=== PATIENT | male | born 1980 | race Hispanic/Latino ===

== ENCOUNTER 2016-09-03 14:23 | Emergency (ER) | payer MEDICAID ==
[2016-09-03 14:23] VITALS: BMI 34.7
[2016-09-03 14:38] VITALS: BP 112/62; PULSE 85; RESP 18; TEMP 97.4; O2SAT 97
--- NOTE | 2016-09-03 14:41 | ED PDOC ---
Arrival/HPI - General Chief Complaint: Abnormal Skin Integrity Time Seen by Provider: 09/03/16 14:41 Historian: Patient - History of Present Illness Narrative History of Present Illness (Text): 09/03/16 14:41 This 36 yo male presents to this ED c/o left inner thigh boil x 2 weeks. Patient stated he has been applied warmth compress. Boil is painful. Patient denies groin pain, streaking erythema, drainage, or fever. Time/Duration: Other (2 weeks) Context: Home Past Medical History - Provider Review Nursing Documentation Reviewed: Yes - Past History Past History: No Previous - Infectious Disease Hx of Infectious Diseases: None - Tetanus Immunization Tetanus Immunization: Unknown - Cardiac Hx Cardiac Disorders: Yes Hx PR: Yes (2011) - Pulmonary Hx Respiratory Disorders: Yes Hx Asthma: Yes Hx Sleep Apnea: Yes - Neurological Hx Neurological Disorder: No - HEENT Hx HEENT Disorder: No - Renal Hx Renal Disorder: No - Endocrine/Metabolic Hx Endocrine Disorders: No - Hematological/Oncological Hx Blood Disorders: No - Integumentary Hx Dermatological Disorder: No - Musculoskeletal/Rheumatological Hx Musculoskeletal Disorders: No - Gastrointestinal Hx Gastrointestinal Disorders: Yes Hx Gall Bladder Disease: Yes Hx Gastroesophageal Reflux: Yes - Genitourinary/Gynecological Hx Genitourinary Disorders: No - Psychiatric Hx Psychophysiologic Disorder: No Hx Substance Use: No - Past Surgical History Past Surgical History: No Previous - Surgical History Hx Cholecystectomy: Yes Other/Comment: cleft palate and lip, bone graft - Anesthesia Hx Anesthesia: No Hx Anesthesia Reactions: No (difficulty arousing pt) Hx Malignant Hyperthermia: No - Suicidal Assessment Feels Threatened In Home Enviroment: No Family/Social History - Physician Review Nursing Documentation Reviewed: Yes Family/Social History: No Known Family HX Smoking Status: Light Smoker < 10 Cigarettes Daily Hx Alcohol Use: No (FORMER) Hx Substance Use: No Hx Substance Use Treatment: No Allergies/Home Meds Allergies/Adverse Reactions: Allergies No Known Allergies Allergy (Verified 09/03/16 14:38) Home Medications: Home Meds Medication Instructions Recorded Confirmed Dsipn-4-Igns Ethyl Esters [OMEGA 3] 1 cap PO BID 04/25/14 03/31/16 Cholecalciferol (Vitamin D3) 1,000 iu PO DAILY 10/25/14 08/02/16 [Vitamin D] Ibuprofen [Advil] 0 mg PO 03/31/16 Review of Systems - Review of Systems Constitutional: Normal. absent: Fatigue, Weight Change, Fevers Eyes: Normal ENT: Normal Respiratory: Normal. absent: SOB, Cough Cardiovascular: Normal. absent: Chest Pain Gastrointestinal: Normal. absent: Abdominal Pain, Vomiting, Appetite Changes Genitourinary Male: Normal. absent: Dysuria Musculoskeletal: Normal Skin: Abscess (left thigh abscess) Neurological: Normal Endocrine: Normal Hemo/Lymphatic: Normal Psychiatric: Normal Physical Exam Vital Signs Temp Pulse Resp BP Pulse Ox 09/03/16 14:34 97.4 F L 85 18 112/62 97 Temperature: Afebrile Blood Pressure: Normal Pulse: Regular Respiratory Rate: Normal Appearance: Positive for: Well-Appearing, Non-Toxic, Comfortable Pain Distress: None Mental Status: Positive for: Alert and Oriented X 3 - Systems Exam Head: Present: Atraumatic, Normocephalic Pupils: Present: PERRL Extroacular Muscles: Present: EOMI Conjunctiva: Present: Normal Mouth: Present: Moist Mucous Membranes Neck: Present: Normal Range of Motion Neurological: Present: GCS=15, CN II-XII Intact, Speech Normal, Motor Func Grossly Intact, Normal Sensory Function, Normal Cerebellar Funct Skin: Present: Warm, Dry, Normal Color, Abscess ((+) left inner tight abscess, approx. 1 cm No erythema). No: Rashes Psychiatric: Present: Alert, Oriented x 3, Normal Insight, Normal Concentration Medical Decision Making ED Course and Treatment: 09/03/16 15:29 Re-evaluation. Patient feels better. Discussed results and plan with patient who expresses understanding. All questions answered and there is agreement with the plan to discharge home with instructions. Patient stable for discharge. Return if symptoms persist or worsen I&D was performed. Very small abscess. No packing was inserted. Re-evaluation Time: 15:29 Reassessment Condition: Re-examined, Improved - Medication Orders Current Medication Orders: Discontinued Medications Trimethoprim/Sulfamethoxazole (Bactrim Ds Tab) 1 tab PO STAT STA PRN Reason: Protocol Stop: 09/03/16 15:18 Last Admin: 09/03/16 15:26 Dose: 1 TAB - Procedure PROCEDURE NOTE (Text): 09/03/16 15:29 PROCEDURE: INCISION & DRAINAGE Performed by the emergency provider Indication: Abscess Location: left inner thigh Preparation: The area was prepped and draped in the usual sterile fashion and was cleansed with Betadine. Local infiltration of Lidocaine 1% with Epi was used for anesthesia. Procedure: The most fluctuant portion of the abscess was incised with a #11 scalpel. Approximately 0.5 mL of was obtained. A dressing was applied by the RN. ~ Post-Procedure: ~On exam the abscess is notably less fluctuant.~ The patient tolerated the procedure well, and there were no complications Disposition/Present on Arrival - Present on Arrival Any Indicators Present on Arrival: No History of DVT/PE: No History of Uncontrolled Diabetes: No Urinary Catheter: No History of Decub. Ulcer: No History Surgical Site Infection Following: None - Disposition Have Diagnosis and Disposition been Completed?: Yes Diagnosis: Abscess Disposition: HOME/ ROUTINE Disposition Time: 15:30 Patient Plan: Discharge Patient Problems: Current Active Problems Problem Status Diagnosed Abscess Acute Elevated liver function tests Acute Intractable abdominal pain Acute Condition: GOOD Discharge Instructions (ExitCare): Abscess Incision and Drainage (ED) Additional Instructions: Call private doctor for follow up visit in 1-2 days. clean wound with soap and water daily. take medication as instructed. Return to emergency if symptoms worsen. Prescriptions: Sulfamethoxazole/Trimethoprim [Bactrim DS 800 mg-160 mg] 1 tab PO BID #20 tab Naproxen 500 mg PO BID #14 tab Referrals: PCP,NO [Primary Care Provider] - Follow up with primary [facility] [Outside] - Follow up with primary Forms: WORK NOTE
[2016-09-03] MEDS ORDERED: Tmp-Smz 800 mg-160 mg DS Tab PO STA (15:17)
== END 2016-09-03 15:42 | disposition home or self-care (01) ==
LOC: ED 14:23
DX: L02.416 Cutaneous abscess of left lower limb (principal); F17.210 Nicotine dependence, cigarettes, uncomplicated

== ENCOUNTER 2016-09-23 23:30 | Emergency (ER) | payer MEDICAID ==
[2016-09-23 23:54] VITALS: BMI 36.0
[2016-09-23 23:55] VITALS: BP 119/75; PULSE 87; RESP 16; TEMP 98; O2SAT 95
--- NOTE | 2016-09-24 00:08 | ED PDOC ---
Arrival/HPI - General Historian: Patient <Martha Contreras A - Last Filed: 09/24/16 00:05> <Abraham Strong - Last Filed: 09/24/16 01:18> - General Chief Complaint: Dental Pain Time Seen by Provider: 09/23/16 23:58 - History of Present Illness Narrative History of Present Illness (Text): 09/24/16 00:05 36yo male in ED with complaint of right sided lower premolar toothache x 2days. States pain became worse today. he plans to make an appointment with a Dentist. Denies fever, chills, any other complaint. (Martha Contreras A) Past Medical History - Provider Review Nursing Documentation Reviewed: Yes - Past History Past History: No Previous - Infectious Disease Hx of Infectious Diseases: None - Tetanus Immunization Tetanus Immunization: Unknown - Cardiac Hx Cardiac Disorders: Yes Hx MS: Yes (2011) - Pulmonary Hx Respiratory Disorders: Yes Hx Asthma: Yes Hx Sleep Apnea: Yes - Neurological Hx Neurological Disorder: No - HEENT Hx HEENT Disorder: No - Renal Hx Renal Disorder: No - Endocrine/Metabolic Hx Endocrine Disorders: No - Hematological/Oncological Hx Blood Disorders: No - Integumentary Hx Dermatological Disorder: No - Musculoskeletal/Rheumatological Hx Musculoskeletal Disorders: No - Gastrointestinal Hx Gastrointestinal Disorders: Yes Hx Gall Bladder Disease: Yes Hx Gastroesophageal Reflux: Yes - Genitourinary/Gynecological Hx Genitourinary Disorders: No - Psychiatric Hx Psychophysiologic Disorder: No Hx Substance Use: No - Past Surgical History Past Surgical History: No Previous - Surgical History Hx Cholecystectomy: Yes Other/Comment: cleft palate and lip, bone graft - Anesthesia Hx Anesthesia: No Hx Anesthesia Reactions: No (difficulty arousing pt) Hx Malignant Hyperthermia: No - Suicidal Assessment Feels Threatened In Home Enviroment: No <Martha Contreras A - Last Filed: 09/24/16 00:05> Family/Social History - Physician Review Nursing Documentation Reviewed: Yes Family/Social History: Unknown Family HX Smoking Status: Light Smoker < 10 Cigarettes Daily Hx Alcohol Use: No (FORMER) Hx Substance Use: No Hx Substance Use Treatment: No <Martha Contreras A - Last Filed: 09/24/16 00:05> Allergies/Home Meds <Martha Contreras A - Last Filed: 09/24/16 00:05> <Abraham Strong - Last Filed: 09/24/16 01:18> Allergies/Adverse Reactions: Allergies No Known Allergies Allergy (Verified 09/03/16 14:38) Home Medications: Home Meds Medication Instructions Recorded Confirmed Thimd-5-Jltm Ethyl Esters [OMEGA 3] 1 cap PO BID 04/25/14 03/31/16 Cholecalciferol (Vitamin D3) 1,000 iu PO DAILY 10/25/14 08/02/16 [Vitamin D] Ibuprofen [Advil] 0 mg PO 03/31/16 Review of Systems - Physician Review All systems were reviewed & negative as marked: Yes - Review of Systems Constitutional: Normal Eyes: Normal ENT: Other (Toothache) Respiratory: Normal Cardiovascular: Normal Gastrointestinal: Normal Genitourinary Male: Normal Musculoskeletal: Normal Skin: Normal Neurological: Normal Endocrine: Normal Hemo/Lymphatic: Normal Psychiatric: Normal <Martha Contreras A - Last Filed: 09/24/16 00:05> Physical Exam Vital Signs Reviewed: Yes Temperature: Afebrile Blood Pressure: Normal Pulse: Regular Respiratory Rate: Normal Appearance: Positive for: Well-Appearing, Non-Toxic, Comfortable Pain Distress: None Mental Status: Positive for: Alert and Oriented X 3 - Systems Exam Head: Present: Atraumatic, Normocephalic Pupils: Present: PERRL Extroacular Muscles: Present: EOMI Conjunctiva: Present: Normal Mouth: Present: Moist Mucous Membranes. No: Normal Teeth (Poor dentition in general. several missing tooth. Right sided lower premolar noted with mild surrounding gingiva.) Neck: Present: Normal Range of Motion Respiratory/Chest: Present: Clear to Auscultation, Good Air Exchange. No: Respiratory Distress, Accessory Muscle Use Cardiovascular: Present: Regular Rate and Rhythm, Normal S1, S2. No: Murmurs Abdomen: Present: Normal Bowel Sounds. No: Tenderness, Distention, Peritoneal Signs Back: Present: Normal Inspection Upper Extremity: Present: Normal Inspection. No: Cyanosis, Edema Lower Extremity: Present: Normal Inspection. No: Edema Neurological: Present: GCS=15, CN II-XII Intact, Speech Normal Skin: Present: Warm, Dry, Normal Color. No: Rashes Psychiatric: Present: Alert, Oriented x 3, Normal Insight, Normal Concentration <DiruHappiness A - Last Filed: 09/24/16 00:05> Vital Signs Temp Pulse Resp BP Pulse Ox 09/23/16 23:55 98 F 87 16 119/75 95 - Medication Orders Current Medication Orders: Discontinued Medications Amoxicillin (Amoxil 500 Mg Cap) 500 mg PO STAT STA PRN Reason: Protocol Stop: 09/24/16 00:05 Last Admin: 09/24/16 00:15 Dose: 500 MG Tramadol HCl (Ultram) 50 mg PO STAT STA Stop: 09/24/16 00:05 Last Admin: 09/24/16 00:15 Dose: 50 MG - PA / [employer] / Resident Statement / has reviewed & agrees with the documentation as recorded. <Abraham Strong - Last Filed: 09/24/16 01:18> Disposition/Present on Arrival - Present on Arrival Any Indicators Present on Arrival: No History of DVT/PE: No History of Uncontrolled Diabetes: No Urinary Catheter: No History of Decub. Ulcer: No History Surgical Site Infection Following: None - Disposition Have Diagnosis and Disposition been Completed?: Yes Disposition Time: 00:15 Patient Plan: Discharge <Martha Contreras - Last Filed: 09/24/16 00:05> <Abraham Strong - Last Filed: 09/24/16 01:18> - Disposition Diagnosis: Toothache Patient Problems: Current Active Problems Problem Status Diagnosed Elevated liver function tests Acute Intractable abdominal pain Acute Discharge Instructions (ExitCare): Dental Caries (ED) Additional Instructions: Follow up with a dentist Return to ED for any new or worsening symptoms Prescriptions: Amoxicillin 500 mg PO BID #21 tablet traMADol [Ultram] 50 mg PO TID #9 tab Referrals: Memo Villela DMD [Staff Provider] - Follow up with primary
== END 2016-09-24 01:00 | disposition home or self-care (01) ==
LOC: ED 23:30
DX: K08.89 Other specified disorders of teeth and supporting structures (principal)

== ENCOUNTER 2018-10-17 14:26 | Emergency (ER) | payer MEDICAID, MEDICARE, OTHER ==
[2018-10-17 14:38] VITALS: BP 116/76; PULSE 83; RESP 18; TEMP 98; O2SAT 96; BMI 35.4
--- NOTE | 2018-10-17 15:00 | ED PDOC ---
Arrival/HPI - General Chief Complaint: Dental Pain Time Seen by Provider: 10/17/18 14:32 Historian: Patient - History of Present Illness Narrative History of Present Illness (Text): 10/17/18 14:55 38 year old M with pmh of cleft palate, hyperlipidemia, DM presents complaining of right sided facial swelling and pain x 2 days. He took Advil with provided little relief. Denies any tooth pain, swallowing complications, throat pain, fevers, chills, headache or dizziness. Patient mentioned he is non complaint with lexapro and metformin. He states he stopped taking his metformin because his glucose levels were normal. Denies excess thirst or urination. He reports he does not have a PMD because he recently moved back from [place]. He denies any further complaints. Time/Duration: < week Symptom Onset: Sudden Symptom Course: Unchanged Activities at Onset: Light Context: Home Past Medical History - Provider Review Nursing Documentation Reviewed: Yes - Past History Past History: No Previous - Infectious Disease Hx of Infectious Diseases: None - Tetanus Immunization Tetanus Immunization: Unknown - Cardiac Hx Cardiac Disorders: Yes Hx DC: Yes (2011) - Pulmonary Hx Respiratory Disorders: Yes Hx Asthma: Yes Hx Sleep Apnea: Yes - Neurological Hx Neurological Disorder: No - HEENT Hx HEENT Disorder: No - Renal Hx Renal Disorder: No - Endocrine/Metabolic Hx Diabetes Mellitus Type 2: Yes (not taking meds) - Hematological/Oncological Hx Blood Disorders: No - Integumentary Hx Dermatological Disorder: No - Musculoskeletal/Rheumatological Hx Musculoskeletal Disorders: No - Gastrointestinal Hx Gastrointestinal Disorders: Yes Hx Gall Bladder Disease: Yes Hx Gastroesophageal Reflux: Yes - Genitourinary/Gynecological Hx Genitourinary Disorders: No - Psychiatric Hx Psychophysiologic Disorder: No Hx Substance Use: No - Past Surgical History Past Surgical History: No Previous - Surgical History Hx Cholecystectomy: Yes Other/Comment: cleft palate and lip, bone graft - Anesthesia Hx Anesthesia: No Hx Anesthesia Reactions: No (difficulty arousing pt) Hx Malignant Hyperthermia: No - Suicidal Assessment Feels Threatened In Home Enviroment: No Family/Social History - Physician Review Nursing Documentation Reviewed: Yes Family/Social History: Unknown Family HX Smoking Status: Heavy Smoker > 10 Cigarettes Daily Hx Alcohol Use: Yes Frequency of alcohol use: Socially Hx Substance Use: No Hx Substance Use Treatment: No Allergies/Home Meds Allergies/Adverse Reactions: Allergies No Known Allergies Allergy (Verified 09/03/16 14:38) Home Medications: Home Meds Medication Instructions Recorded Confirmed Ngqvp-[id number] Ethyl Esters [OMEGA 3] 1 cap PO BID 04/25/14 03/31/16 Cholecalciferol (Vitamin D3) 1,000 iu PO DAILY 10/25/14 08/02/16 [Vitamin D] Ibuprofen [Advil] 0 mg PO 03/31/16 Review of Systems - Physician Review All systems were reviewed & negative as marked: Yes - Review of Systems Constitutional: absent: Fevers ENT: absent: Sore Throat, Rhinorrhea, Epistaxis Respiratory: absent: SOB, Cough, Wheezing Cardiovascular: absent: Chest Pain, Palpitations, Syncope Gastrointestinal: absent: Abdominal Pain, Diarrhea, Nausea, Vomiting, Hematochezia, Hematemesis Genitourinary Male: absent: Dysuria, Hematuria Musculoskeletal: absent: Arthralgias Skin: absent: Rash, Abscess, Ulcer, Cellulitis Neurological: absent: Headache, Dizziness Physical Exam Vital Signs Reviewed: Yes Vital Signs Temp Pulse Resp BP Pulse Ox 10/17/18 14:37 98 F 83 18 116/76 96 Temperature: Afebrile Blood Pressure: Normal Pulse: Regular Respiratory Rate: Normal Appearance: Positive for: Well-Appearing, Non-Toxic, Comfortable Pain Distress: Mild Mental Status: Positive for: Alert and Oriented X 3 - Systems Exam Head: Present: Atraumatic, Normocephalic Pupils: Present: PERRL Extroacular Muscles: Present: EOMI Conjunctiva: Present: Normal Mouth: Present: Moist Mucous Membranes, Normal Tounge, Other (Swelling and tenderness to lower right cheek and jaw. No lymphadenopathy.). No: Drooling, Trismus, Normal Lips, Normal Teeth (poor dentition) Pharnyx: Present: Normal. No: ERYTHEMA, EXUDATE, TONSILS ENLARGED, Peritonsilar Swelling, Uvular Deviation, Muffled/Hoarse Voice, Strider, Soft Palate/Uvular Edema Nose (Internal): Present: Normal Inspection Neck: Present: Normal Range of Motion Respiratory/Chest: Present: Clear to Auscultation, Good Air Exchange. No: Respiratory Distress, Accessory Muscle Use Cardiovascular: Present: Regular Rate and Rhythm, Normal S1, S2. No: Murmurs Abdomen: No: Tenderness, Distention, Peritoneal Signs Back: Present: Normal Inspection Upper Extremity: Present: Normal Inspection. No: Cyanosis, Edema Lower Extremity: Present: Normal Inspection. No: Edema Neurological: Present: Speech Normal Skin: Present: Warm, Dry, Normal Color. No: Rashes Lymphatic: No: Cervical Adenopathy Psychiatric: Present: Alert, Oriented x 3, Normal Insight, Normal Concentration Medical Decision Making ED Course and Treatment: 10/17/18 15:00 Impression: 38 year old M presents complaining of right sided facial swelling and pain x2days Differential Diagnosis included but are not limited to: Tooth infection, rule out abscess vs. cellulitis Plan: -- Cleocin -- Motrin -- Reassess and disposition Prior Visits: Notes and results from previous visits were reviewed. Progress Notes I used bedside ultrasound to visualize the swelling of the face. No loculation noted. Will tx with Clindamycin and have patient return to the ED in 2-3days for a wound check. He will also make sure to follow up a dentist at [facility]; address given to him. He says he can follow up. He was advised to return to the ED if fever develops, unable to swallow or any other concern. - Scribe Statement The provider has reviewed the documentation as recorded by the Ang Shankar All medical record entries made by the Darcyibpiero were at my direction and personally dictated by me. I have reviewed the chart and agree that the record accurately reflects my personal performance of the history, physical exam, medical decision making, and the department course for this patient. I have also personally directed, reviewed, and agree with the discharge instructions and disposition. Disposition/Present on Arrival - Present on Arrival Any Indicators Present on Arrival: No History of DVT/PE: No History of Uncontrolled Diabetes: No Urinary Catheter: No History of Decub. Ulcer: No History Surgical Site Infection Following: None - Disposition Have Diagnosis and Disposition been Completed?: Yes Diagnosis: Dental abscess Disposition: HOME/ ROUTINE Disposition Time: 15:17 Patient Plan: Discharge Patient Problems: Current Active Problems Problem Status Onset Dental abscess Acute Condition: GOOD Discharge Instructions (ExitCare): Tooth Abscess (DC) Additional Instructions: CHARLI SERRANO, thank you for letting us take care of you today. Your provider was Benny Cherry DO and you were treated for Dental Abcess. The emergency medical care you received today was directed at your acute symptoms. If you were prescribed any medication, please fill it and take as directed. It may take several days for your symptoms to resolve. Return to the Emergency Department if your symptoms worsen, do not improve, or if you have any other problems. PLEASE FOLLOW UP WITH THE DENTAL CLINIC AT [facility], [address] [place] [id number] PLEASE RETURN TO THE ED IF SWELLING WORSEN, REDNESS DEVELOPS, FEVER OR ANY OTHER CONCERN. Please contact your doctor or call one of the physicians/clinics you have been referred to that are listed on the Patient Visit Information form that is included in your discharge packet. Bring any paperwork you were given at discharge with you along with any medications you are taking to your follow up visit. Our treatment cannot replace ongoing medical care by a primary care provider outside of the emergency department. Thank you for allowing the [employer] team to be part of your care today. If you had an X-Ray or CT scan: A Radiologist will review the ED reading if any change in treatment is needed we will contact you. If you had a blood, urine, or wound culture: It will take several days for the results, if any change in treatment is needed we will contact you. If you had an STI test: It will take 48 hours for the results. Please call after 1 week if you have not heard back. Prescriptions: Clindamycin [Cleocin] 450 mg PO TID #90 cap Ibuprofen [Motrin] 600 mg PO Q6 PRN #30 tab PRN Reason: Pain, Moderate (4-7) Referrals: Dee Geiger MD [Medical Doctor] - Follow up with primary Forms: [employer] ([employer]), WORK NOTE
== END 2018-10-17 15:30 | disposition home or self-care (01) ==
LOC: ED 14:26
DX: K04.7 Periapical abscess without sinus (principal)

== ENCOUNTER 2018-10-19 16:43 | Emergency (ER) | payer MEDICARE, OTHER ==
[2018-10-19 16:43] VITALS: BMI 35.4
[2018-10-19 17:03] VITALS: RESP 18; TEMP 97.9; O2SAT 98
[2018-10-19] MEDS ORDERED: Alum-Mag Hydrox-Simethicone Susp (30 mL) PO STA (17:28)
--- NOTE | 2018-10-19 17:35 | ED PDOC ---
Arrival/HPI - General Historian: Patient - History of Present Illness Narrative History of Present Illness (Text): 10/19/18 17:29 Pt is a 38 yo male with a PMH of hyperlipidemia, pre diabetes, sleep apnea, cleft palate, cholelithiasis, and tobacco use who presents to the ED complaining of a 2 day history of atypical chest pain which comes and goes 10/10 tightness which does not radiate. Pt states the pain started when he began his course of Cleocin 2 days ago for his tooth infection. Pt states the pain starts each time he take another dose of the antibiotic. Pt also reports associated nausea. Denies shortness of breath, vomiting, diarrhea, diaphoresis, headache, visual ch anges, and is non pleuritic. Pt states he recently moved back from [place] and does not have PMD. Pt had a stress test in 2012 which was negative. Denies any history of early OR in his family. Time/Duration: < week Symptom Course: Intermittent Quality: Tightness Severity Level: 10 <Matthew Valdes - Last Filed: 10/19/18 19:18> <Sandy Pena - Last Filed: 10/19/18 19:21> - General Chief Complaint: Chest Pain Time Seen by Provider: 10/19/18 16:46 Past Medical History - Past History Past History: No Previous - Infectious Disease Hx of Infectious Diseases: None - Tetanus Immunization Tetanus Immunization: Unknown - Cardiac Hx Cardiac Disorders: Yes Hx OR: Yes (2011) - Pulmonary Hx Respiratory Disorders: Yes Hx Asthma: Yes Hx Sleep Apnea: Yes - Neurological Hx Neurological Disorder: No - HEENT Hx HEENT Disorder: No - Renal Hx Renal Disorder: No - Endocrine/Metabolic Hx Diabetes Mellitus Type 2: Yes (not taking meds) - Hematological/Oncological Hx Blood Disorders: No - Integumentary Hx Dermatological Disorder: No - Musculoskeletal/Rheumatological Hx Musculoskeletal Disorders: No - Gastrointestinal Hx Gastrointestinal Disorders: Yes Hx Gall Bladder Disease: Yes Hx Gastroesophageal Reflux: Yes - Genitourinary/Gynecological Hx Genitourinary Disorders: No - Psychiatric Hx Psychophysiologic Disorder: No Hx Substance Use: No - Past Surgical History Past Surgical History: No Previous - Surgical History Hx Cholecystectomy: Yes Other/Comment: cleft palate and lip, bone graft - Anesthesia Hx Anesthesia: No Hx Anesthesia Reactions: No (difficulty arousing pt) Hx Malignant Hyperthermia: No - Suicidal Assessment Feels Threatened In Home Enviroment: No <Matthew Valdes - Last Filed: 10/19/18 19:18> Family/Social History Family/Social History: CVA/TIA, Diabetes Smoking Status: Heavy Smoker > 10 Cigarettes Daily Hx Alcohol Use: Yes Hx Substance Use: No Hx Substance Use Treatment: No <Matthew Valdes - Last Filed: 10/19/18 19:18> Allergies/Home Meds <Matthew Valdes - Last Filed: 10/19/18 19:18> <Sandy Pena - Last Filed: 10/19/18 19:21> Allergies/Adverse Reactions: Allergies No Known Allergies Allergy (Verified 10/19/18 17:13) Home Medications: Home Meds Medication Instructions Recorded Confirmed [id number] Ethyl Esters [OMEGA 3] 1 cap PO BID 04/25/14 03/31/16 Cholecalciferol (Vitamin D3) 1,000 iu PO DAILY 10/25/14 08/02/16 [Vitamin D] Ibuprofen [Advil] 0 mg PO 03/31/16 Review of Systems - Review of Systems Constitutional: Normal Eyes: Normal. absent: Vision Changes ENT: Normal. absent: Hearing Changes Respiratory: Normal Cardiovascular: Chest Pain Gastrointestinal: Nausea. absent: Abdominal Pain, Diarrhea, Vomiting Musculoskeletal: Normal Skin: Normal Neurological: Normal Endocrine: Normal Hemo/Lymphatic: Normal Psychiatric: Normal <Matthew Valdes - Last Filed: 10/19/18 19:18> Physical Exam Vital Signs Temp Pulse Resp BP Pulse Ox 10/19/18 17:01 97.9 F 84 18 118/70 98 Temperature: Afebrile Blood Pressure: Normal Pulse: Regular Respiratory Rate: Normal Appearance: Positive for: Comfortable Mental Status: Positive for: Alert and Oriented X 3 - Systems Exam Head: Present: Atraumatic Pupils: Present: PERRL Extroacular Muscles: Present: EOMI Ears: Present: Normal Mouth: Present: Other (poor dentition ). No: Normal Teeth Respiratory/Chest: Present: Clear to Auscultation, Good Air Exchange. No: Respiratory Distress, Accessory Muscle Use Cardiovascular: Present: Regular Rate and Rhythm, Normal S1, S2, Other (chest pain is reproducible to palpation ) Abdomen: Present: Normal Bowel Sounds. No: Distention Upper Extremity: Present: Normal Inspection. No: Cyanosis, Edema Lower Extremity: Present: Normal Inspection. No: Edema, CALF TENDERNESS Neurological: Present: GCS=15, CN II-XII Intact Skin: Present: Warm, Dry Psychiatric: Present: Alert, Oriented x 3 <LucioMatthew Nabor - Last Filed: 10/19/18 19:18> Vital Signs Temp Pulse Resp BP Pulse Ox 10/19/18 17:01 97.9 F 84 18 118/70 98 <Sandy Pena - Last Filed: 10/19/18 19:21> Medical Decision Making ED Course and Treatment: 10/19/18 17:42 atypical chest pain, likely GI related, likely provoked by current antibiotic use cardiac enzymes CMP CBC BNP CXR 10/19/18 18:22 malox ASA Pepcid Troponin negative Chest X-ray no active pulmonary disease 10/19/18 18:34 pt reports his chest pain has improved some since he arrived at the hospital - RAD Interpretation Radiology Orders: 10/19/18 17:20 CHEST PORTABLE [RAD] Stat <LucioMatthew Nabor - Last Filed: 10/19/18 19:18> ED Course and Treatment: 10/19/18 18:49 Patient Seen with Resident: In agreement with resident note which contains more details about the patient. Patient seen and evaluated with resident. Came up with plan and treatment together. Patient reports that since he started clindamycin 3 days ago he has had epigastric pain when he takes the antibiotic. He reports that it also hurts when he swallows after taking the antibiotic. He reports that this resolves aft er a little while spontaneously. No association with exertion. Reports associated nausea. No vomiting. No abdominal pain. Patient had normal stress test in September 2012. Had cardiac risk factors, but ekg shows no changes from 2014, trop x 1 negative and d-dimer negative. Heart score:3. Physical exam shows reproducible chest pain. Likely side effect from medication. Will switch to augmentin and instructed to follow-up with cardiology and GI and return immediately with any worsening symptoms. 10/19/18 19:17 - Lab Interpretations Lab Results: D-Dimer, Quantitative < 200 ng/mlDDU (0-243) 10/19/18 18:10 Troponin I < 0.01 ng/mL 10/19/18 17:43 NT-Pro-B Natriuret Pep 40.9 pg/mL (0-450) 10/19/18 17:43 Total Bilirubin 0.5 mg/dL (0.2-1.3) 10/19/18 17:43 AST 40 U/L (17-59) 10/19/18 17:43 ALT 74 U/L (7-56) H 10/19/18 17:43 Alkaline Phosphatase 118 U/L (38-126) 10/19/18 17:43 Total Protein 7.2 g/dL (5.8-8.3) 10/19/18 17:43 Albumin 3.9 g/dL (3.0-4.8) 10/19/18 17:43 Globulin 3.3 gm/dL 10/19/18 17:43 Albumin/Globulin Ratio 1.2 (1.1-1.8) 10/19/18 17:43 - RAD Interpretation Radiology Orders: 10/19/18 17:20 CHEST PORTABLE [RAD] Stat - Medication Orders Current Medication Orders: Discontinued Medications Al Hydrox/Mg Hydrox/Simethicone (Maalox Plus 30 Ml) 30 ml PO STAT STA Stop: 10/19/18 17:29 Last Admin: 10/19/18 18:27 Dose: 30 ml Aspirin (Aspirin Chewable) 324 mg PO STAT STA Stop: 10/19/18 17:29 Last Admin: 10/19/18 18:27 Dose: 324 mg Famotidine (Pepcid) 20 mg IVP STAT STA Stop: 10/19/18 17:29 Last Admin: 10/19/18 18:27 Dose: 20 mg IVP Administration Document 10/19/18 18:27 (Rec: 10/19/18 18:27 [id number] Charges for Administration # of IVP Administrations 1 <Sandy Pena - Last Filed: 10/19/18 19:21> - PA / [employer] / Resident Statement VONDA has reviewed & agrees with the documentation as recorded. VONDA has examined the patient and agrees with the treatment plan. <Sandy Pena - Last Filed: 10/19/18 19:21> Disposition/Present on Arrival - Present on Arrival Any Indicators Present on Arrival: No History of DVT/PE: No History of Uncontrolled Diabetes: No Urinary Catheter: No History of Decub. Ulcer: No History Surgical Site Infection Following: None <Matthew Valdes - Last Filed: 10/19/18 19:18> - Present on Arrival Any Indicators Present on Arrival: No - Disposition Have Diagnosis and Disposition been Completed?: Yes Disposition Time: 19:19 Patient Plan: Discharge <Sandy Pena - Last Filed: 10/19/18 19:21> - Disposition Diagnosis: Epigastric pain Disposition: HOME/ ROUTINE Condition: GOOD Discharge Instructions (ExitCare): Acid Reflux (Gastroesophageal Reflux Disease), Adult (DC) Additional Instructions: Take augmentin instead of clindamycin. Return immediately if condition worsens. Follow-up with GI and cardiology. Follow-up with PMD within 2 days. Follow- up with dental as earlier prescribed. Prescriptions: Amoxicillin/Clavulanate [Augmentin 875 MG-125 MG] 1 tab PO BID #20 tab Referrals: PCP,NO [Primary Care Provider] - Follow up with primary Damion Jack MD [Staff Provider] - Follow up with primary Vinnie Smith MD [Staff Provider] - Follow up with primary Forms: [employer] (Greek)
--- NOTE | 2018-10-19 17:50 | RAD ---
Date of service: 10/19/2018 HISTORY: chest pain COMPARISON: 08/02/2016 FINDINGS: LUNGS: The lungs are well inflated and clear. PLEURA: No pleural effusions or pneumothorax. CARDIOVASCULAR: The heart is normal in size. No aortic atherosclerotic calcifications present. OSSEOUS STRUCTURES: Within normal limits for the patient's age. VISUALIZED UPPER ABDOMEN: Normal. OTHER FINDINGS: None. IMPRESSION: No active pulmonary disease.
[2018-10-19 17:58] LABS: ALB/GLOB RATIO 1.2 (1.1-1.8); ALBUMIN 3.9 g/dL (3.0-4.8); BLOOD UREA NITROGEN 16 mg/dL (7-21); CALCIUM 9.7 mg/dL (8.4-10.5); GFR NON-AFRICAN AMERICAN > 60
[2018-10-19 18:07] LABS: ALT/SGPT 74 U/L (7-56); AST/SGOT 40 U/L (17-59)
[2018-10-19 18:10] LABS: B-TYPE NATRIURETIC PEPTIDE 40.9 pg/mL (0-450); TROPONIN I < 0.01 ng/mL
[2018-10-19 18:17] LABS: BASO # 0.02 K/mm3 (0.0-2.0); BASO % 0.2 % (0.0-3.0); EOS # 0.3 (0.0-0.7); EOS % 2.9 % (1.5-5.0); HEMOGLOBIN 15.5 g/dL (14.0-18.0); LYMPH # 2.4 (1.2-3.4); MEAN CELL VOLUME 94.5 fl (80.0-105.0); MEAN CORPUSCULAR HEMOGLOBIN 31.4 pg (25.0-35.0); MEAN CORPUSCULAR HGB CONC 33.3 g/dl (31.0-37.0); MEAN PLATELET VOLUME 10.9 fl (7.0-11.0); MONO # 0.5 (0.1-0.6); MONO % 5.7 % (1.0-6.0); RBC 4.93 10^6/uL (3.5-6.1); RED CELL DISTRIBUTION WIDTH 13.1 % (11.5-14.5); WHITE BLOOD COUNT 8.9 10^3/uL (4.5-11.0)
--- NOTE | 2018-10-19 20:26 | CARD ---
APPROVED REPORT Date of service: 10/19/2018 EKG Measurement Heart [id number] CT [id number] <Conclusion> Normal sinus rhythm Cannot rule out small or absent R waves V1-V3, may be due to lead placement or possible septal infarct age undetermined. Abnormal ECG
[2018-10-19 23:34] VITALS: BP 120/82; PULSE 80
== END 2018-10-19 23:34 | disposition home or self-care (01) ==
LOC: ED 16:43
DX: R10.13 Epigastric pain (principal); I25.2 Old myocardial infarction; E78.5 Hyperlipidemia, unspecified; J45.909 Unspecified asthma, uncomplicated; E11.9 Type 2 diabetes mellitus without complications; K21.9 Gastro-esophageal reflux disease without esophagitis; Z82.3 Family history of stroke; Z83.3 Family history of diabetes mellitus; F17.210 Nicotine dependence, cigarettes, uncomplicated